=== PATIENT | male | born 1965 | race Caucasian/White ===

== ENCOUNTER 2022-01-08 11:53 | Inpatient (IN) ==
[2022-01-08] MEDS ORDERED: Melatonin 3 MG TABLET PO PRN (20:43)
[2022-01-08] MEDS ORDERED: Naloxone 0.4 MG/ML INJ IVP PRN (20:43)
[2022-01-08] MEDS ORDERED: Ondansetron 4 MG/2 ML VIAL IVP PRN (21:00)
[2022-01-08] MEDS ORDERED: Acetaminophen 325 MG TABLET PO PRN (21:00)
[2022-01-08] MEDS ORDERED: Albuterol 2.5 MG/3 ML NEBULIZER IH PRN (21:20)
[2022-01-08] MEDS ORDERED: Vancomycin 2,000 MG/520 ML IV.SOLN IVPB ONE (22:00)
[2022-01-08 22:09] LABS: Basophils # 0.1 K/mcL (0.0-0.2); Basophils % 0.5 %; Hematocrit 35.4 % (37.5-50.1); Hemoglobin 12.1 g/dL (12.9-16.9); Immature Granulocytes % 1.6 % (0-4); Lymphocytes # 1.6 K/mcL (0.6-4.6); Lymphocytes % 7.3 %; Mean Corpuscular HGB Conc 34.2 g/dL (31.6-35.5); Mean Corpuscular Hemoglobin 27.4 pg (28.0-33.3); Mean Corpuscular Volume 80.1 fL (83.0-100.0); Mean Platelet Volume 10.3 fL (9.4-12.4); Monocytes # 1.7 K/mcL (0.0-1.3); Monocytes % 7.8 %; Platelet Count 350 K/mcL (140-400); Red Blood Count 4.42 M/mcL (4.19-5.50); Red Cell Distribution Width 14.4 % (11.5-14.5); Segmented Neutrophils % 82.8 %; White Blood Count 21.8 K/mcL (4.3-11.1)
[2022-01-08 22:15] LABS: Neutrophils # 18.1 K/mcL (1.6-8.9)
[2022-01-08 22:46] LABS: Target Cells 1+ (Not Present); Toxic Granulation Present (Not Present)
[2022-01-09] MEDS: Meropenem 1,000 MG in Water for inj. (sterile) 20 ML IVP SCH ×3 (00:35→16:33)
[2022-01-09 01:02] LABS: Basophils # 0.1 K/mcL (0.0-0.2); Basophils % 0.3 %; Hematocrit 33.1 % (37.5-50.1); Hemoglobin 11.6 g/dL (12.9-16.9); Immature Granulocytes % 1.4 % (0-4); Lymphocytes # 1.9 K/mcL (0.6-4.6); Lymphocytes % 8.5 %; Mean Corpuscular Hemoglobin 28.4 pg (28.0-33.3); Mean Corpuscular Volume 80.9 fL (83.0-100.0); Mean Platelet Volume 10.3 fL (9.4-12.4); Monocytes # 1.9 K/mcL (0.0-1.3); Monocytes % 8.5 %; Neutrophils # 18.1 K/mcL (1.6-8.9); Platelet Count 311 K/mcL (140-400); Red Blood Count 4.09 M/mcL (4.19-5.50); Red Cell Distribution Width 14.6 % (11.5-14.5); Segmented Neutrophils % 81.3 %; White Blood Count 22.3 K/mcL (4.3-11.1)
[2022-01-09 01:14] LABS: BUN/Creatinine Ratio 25 (6-26); Blood Urea Nitrogen 22 mg/dL (6-20); Calcium 7.4 mg/dL (8.6-10.3); Carbon Dioxide 20 mEq/L (23-29); Chloride 100 mEq/L (98-107); Glucose 160 mg/dL (70-105); Osmolality,Calculated 277 (280-300); Potassium 3.5 mEq/L (3.5-5.1); Sodium 130 mEq/L (136-145); eGFR For African Americans > 60 (> 60); eGFR For Non-African Americans > 60 (> 60)
[2022-01-09 01:16] LABS: Alanine Aminotransferase 82 Units/L (7-52); Albumin 1.6 g/dL (3.5-5.7); Albumin/Globulin Ratio 0.3 (1.1-2.2); Alkaline Phosphatase 152 Units/L (34-104); Aspartate Amino Transferase 118 Units/L (13-39); BUN/Creatinine Ratio 25 (6-26); Bilirubin,Total 1.5 mg/dL (0.3-1.0); Blood Urea Nitrogen 22 mg/dL (6-20); Calcium 7.4 mg/dL (8.6-10.3); Carbon Dioxide 20 mEq/L (23-29); Chloride 100 mEq/L (98-107); Globulin 5.5 g/dL (2.4-3.5); Glucose 161 mg/dL (70-105); Magnesium 1.9 mg/dL (1.6-2.6); Osmolality,Calculated 277 (280-300); Phosphorous 4.7 mg/dL (2.7-4.5); Potassium 3.5 mEq/L (3.5-5.1); Sodium 130 mEq/L (136-145); Total Protein 7.1 g/dL (6.4-8.9); Troponin I 0.03 ng/mL (< 0.04); eGFR For African Americans > 60 (> 60); eGFR For Non-African Americans > 60 (> 60)
[2022-01-09 01:31] LABS: INR 1.8; Prothrombin Time 20.4 Seconds (9.4-12.1)
[2022-01-09 02:07] LABS: Hypochromasia Present (Not Present); Platelet Estimate Normal (Normal); Toxic Granulation Present (Not Present)
[2022-01-09] MEDS: *HR* Heparin 5,000 UNIT/ML VIAL SQ SCH ×2 (06:01→17:13)
[2022-01-09] MEDS: Vancomycin 1,750 MG/517.5 ML IV.SOLN IVPB SCH ×2 (12:00→21:26)
[2022-01-09] MEDS ORDERED: *HR* Phytonadione 5 MG TABLET PO ONE (15:08)
[2022-01-09] MEDS: Piperacillin/Tazobactam 3.375 GM in 0.9 % Sodium Chloride Mini Bag 100 ML IVPB SCH (23:43)
[2022-01-10] MEDS: *HR* Heparin 5,000 UNIT/ML VIAL SQ SCH ×2 (06:30→16:42)
[2022-01-10 09:08] LABS: Hematocrit 35.3 % (37.5-50.1); Hemoglobin 12.1 g/dL (12.9-16.9); Mean Corpuscular HGB Conc 34.3 g/dL (31.6-35.5); Mean Corpuscular Hemoglobin 27.7 pg (28.0-33.3); Mean Corpuscular Volume 80.8 fL (83.0-100.0); Mean Platelet Volume 9.9 fL (9.4-12.4); Nucleated Red Blood Cells 0.1 /100 WBC (0); Platelet Count 265 K/mcL (140-400); Red Blood Count 4.37 M/mcL (4.19-5.50); Red Cell Distribution Width 15.1 % (11.5-14.5)
[2022-01-10] MEDS: Piperacillin/Tazobactam 3.375 GM in 0.9 % Sodium Chloride Mini Bag 100 ML IVPB SCH ×2 (09:12→16:43)
[2022-01-10 09:25] LABS: BUN/Creatinine Ratio 26 (6-26); Blood Urea Nitrogen 18 mg/dL (6-20); Calcium 7.5 mg/dL (8.6-10.3); Carbon Dioxide 24 mEq/L (23-29); Chloride 100 mEq/L (98-107); Glucose 105 mg/dL (70-105); Osmolality,Calculated 274 (280-300); Potassium 3.4 mEq/L (3.5-5.1); Sodium 131 mEq/L (136-145); eGFR For African Americans > 60 (> 60); eGFR For Non-African Americans > 60 (> 60)
[2022-01-10 09:26] LABS: INR 1.5; Prothrombin Time 16.2 Seconds (9.4-12.1)
[2022-01-10 09:30] LABS: eGFR For African Americans > 60 (> 60); eGFR For Non-African Americans > 60 (> 60)
[2022-01-10 10:37] LABS: Hypochromasia Present (Not Present); Lymphocytes # 1.2 K/mcL (0.6-4.6); Monocytes # 0.4 K/mcL (0.0-1.3); Neutrophils # 18.4 K/mcL (1.6-8.9); Platelet Estimate Normal (Normal); Target Cells 1+ (Not Present); Toxic Granulation Present (Not Present); Toxic Vacuolation Present (Not Present)
[2022-01-10] MEDS: Vancomycin 1,750 MG/517.5 ML IV.SOLN IVPB SCH ×2 (11:31→22:19)
[2022-01-10] MEDS ORDERED: *HR* Midazolam HCl 2 MG/2 ML VIAL ONE (13:12)
[2022-01-10] MEDS ORDERED: *HR* Propofol 200 MG/20 ML VIAL IVP ONE (13:12)
[2022-01-10] MEDS ORDERED: *HR* FentaNYL (PF) 100 MCG/2 ML VIAL ONE (13:12)
[2022-01-10] MEDS ORDERED: Lidocaine -MPF 4% 5 ML AMPUL ONE (13:14)
[2022-01-10] MEDS ORDERED: Ondansetron 4 MG/2 ML VIAL ONE (13:14)
[2022-01-10] MEDS ORDERED: Lidocaine -MPF 2% 2 ML VIAL ONE (13:14)
[2022-01-10] MEDS: Ringers Solution, Lactated 1,000 ML IVC SCH (13:19)
[2022-01-10 14:29] LABS: Source of Body Fluid RLL BAL
[2022-01-10 14:29] LABS: Source of Body Fluid LLL BAL
[2022-01-10] MEDS ORDERED: Ipratropium/Albuterol Neb 3 ML IH ONE (15:16)
[2022-01-10] MEDS ORDERED: Ipratropium/Albuterol Neb 3 ML IH PRN (15:16)
[2022-01-10] MEDS ORDERED: Ipratropium/Albuterol Neb 3 ML ONE (15:21)
[2022-01-10 15:28] LABS: Appearance of Body Fluid Cloudy (Clear); Volume of Body Fluid 14 mL
[2022-01-10] MEDS ORDERED: Lidocaine -MPF 1% 5 ML AMPUL ONE (15:45)
[2022-01-10 16:19] LABS: Appearance of Body Fluid Cloudy (Clear); Volume of Body Fluid 23 mL
[2022-01-10] MEDS ORDERED: *HR* OxyCODONE/APAP 7.5/325 TABLET PO PRN (17:34)
[2022-01-10] MEDS ORDERED: Furosemide 20 MG/2 ML VIAL IVP ONE (20:05)
[2022-01-10] MEDS ORDERED: *HR* Labetalol 20 MG/4 ML SYRINGE IVP ONE (20:05)
[2022-01-10] MEDS: Ipratropium/Albuterol Neb 3 ML IH SCH ×2 (20:36→23:34)
[2022-01-11] MEDS: Piperacillin/Tazobactam 3.375 GM in 0.9 % Sodium Chloride Mini Bag 100 ML IVPB SCH ×3 (00:04→18:00)
[2022-01-11 02:26] LABS: Basophils # 0.1 K/mcL (0.0-0.2); Basophils % 0.2 %; Hematocrit 36.6 % (37.5-50.1); Hemoglobin 12.2 g/dL (12.9-16.9); Immature Granulocytes % 1.1 % (0-4); Lymphocytes # 1.9 K/mcL (0.6-4.6); Lymphocytes % 8.7 %; Mean Corpuscular HGB Conc 33.3 g/dL (31.6-35.5); Mean Corpuscular Hemoglobin 27.1 pg (28.0-33.3); Mean Corpuscular Volume 81.3 fL (83.0-100.0); Mean Platelet Volume 10.3 fL (9.4-12.4); Monocytes # 1.5 K/mcL (0.0-1.3); Neutrophils # 18.3 K/mcL (1.6-8.9); Platelet Count 240 K/mcL (140-400); Red Cell Distribution Width 15.4 % (11.5-14.5)
[2022-01-11] MEDS ORDERED: *HR* Labetalol 20 MG/4 ML SYRINGE IVP ONE (02:38)
[2022-01-11 03:21] LABS: BUN/Creatinine Ratio 24 (6-26); Blood Urea Nitrogen 17 mg/dL (6-20); Calcium 7.2 mg/dL (8.6-10.3); Carbon Dioxide 24 mEq/L (23-29); Chloride 102 mEq/L (98-107); Glucose 134 mg/dL (70-105); Osmolality,Calculated 280 (280-300); Potassium 3.4 mEq/L (3.5-5.1); Sodium 133 mEq/L (136-145); eGFR For African Americans > 60 (> 60); eGFR For Non-African Americans > 60 (> 60)
[2022-01-11] MEDS: Ipratropium/Albuterol Neb 3 ML IH SCH ×2 (04:12→07:46)
[2022-01-11] MEDS: *HR* Heparin 5,000 UNIT/ML VIAL SQ SCH ×2 (06:04→17:27)
[2022-01-11] MEDS ORDERED: Furosemide 20 MG/2 ML VIAL IVP ONE (06:30)
[2022-01-11] MEDS ORDERED: *HR* Propofol 200 MG/20 ML VIAL IVP ONE ×2 (06:44→22:15)
[2022-01-11] MEDS ORDERED: Ondansetron 4 MG/2 ML VIAL ONE (06:47)
[2022-01-11] MEDS ORDERED: Lidocaine -MPF 2% 2 ML VIAL ONE (06:47)
[2022-01-11] MEDS ORDERED: Lidocaine HCL 4 ML Topical Solution (Laryng-O-Jet Kit Sterile Pak) TP ONE (06:47)
[2022-01-11] MEDS ORDERED: *HR* Rocuronium Bromide 50 MG/5 ML VIAL ONE ×2 (06:47→09:16)
[2022-01-11] MEDS ORDERED: *HR* FentaNYL (PF) 100 MCG/2 ML VIAL ONE (06:49)
[2022-01-11] MEDS ORDERED: *HR* Phenylephrine 10 MG/ML VIAL ONE (07:01)
[2022-01-11] MEDS ORDERED: *HR* Midazolam HCl 2 MG/2 ML VIAL ONE (07:04)
[2022-01-11] MEDS ORDERED: Ondansetron 4 MG/2 ML VIAL IVP PRN (07:28)
[2022-01-11] MEDS ORDERED: *HR* HYDROmorphone PF 0.5 MG/0.5 ML SYRINGE IVP PRN (07:28)
[2022-01-11] MEDS ORDERED: *HR* HYDROMORPHONE 2 MG/ML VIAL ONE (09:54)
[2022-01-11] MEDS ORDERED: *HR* Midazolam HCl 2 MG/2 ML VIAL IVP ONE (10:31)
[2022-01-11] MEDS ORDERED: Artificial Tears SOLN 15 ML BOTTLE BOTH EYES PRN (10:32)
[2022-01-11] MEDS: Vancomycin 1,750 MG/517.5 ML IV.SOLN IVPB SCH (10:44)
[2022-01-11] MEDS ORDERED: Chlorhexidine Rinse 15 ML MOUTHWASH MM SCH (10:45)
[2022-01-11] MEDS ORDERED: 0.9 % Sodium Chloride 1,000 ML IVC SCH ×2 (10:48→16:15)
[2022-01-11 11:42] LABS: ABG Base Excess -3 mEq/L (-2 to 3); ABG HCO3 21 mEq/L (21-27); ABG Oxygen Saturation 99 % (95-98); ABG PCO2 34 mmHg (35-45); ABG PO2 122 mmHg (85-104); ABG TCO2 22 mEq/L (20-26); Blood Gas Modality ASSIST CONTROL; Blood Gas VT 500 cc
[2022-01-11] MEDS ORDERED: Artificial Tears SOLN 15 ML BOTTLE BOTH EYES SCH (12:00)
[2022-01-11 12:12] LABS: VBG Ionized Calcium 1.02 mmol/L (1.15-1.35)
[2022-01-11 12:17] LABS: Hematocrit 39.3 % (37.5-50.1); Hemoglobin 12.9 g/dL (12.9-16.9); Mean Corpuscular HGB Conc 32.8 g/dL (31.6-35.5); Mean Corpuscular Hemoglobin 28.2 pg (28.0-33.3); Mean Platelet Volume 10.7 fL (9.4-12.4); Platelet Count 275 K/mcL (140-400); Red Blood Count 4.57 M/mcL (4.19-5.50); Red Cell Distribution Width 16.2 % (11.5-14.5)
[2022-01-11 12:19] LABS: White Blood Count 32.1 K/mcL (4.3-11.1)
[2022-01-11 12:29] LABS: BUN/Creatinine Ratio 19 (6-26); Blood Urea Nitrogen 20 mg/dL (6-20); Calcium 7.7 mg/dL (8.6-10.3); Carbon Dioxide 23 mEq/L (23-29); Chloride 101 mEq/L (98-107); Glucose 146 mg/dL (70-105); Magnesium 2.2 mg/dL (1.6-2.6); Osmolality,Calculated 281 (280-300); Phosphorous 6.8 mg/dL (2.7-4.5); Potassium 4.1 mEq/L (3.5-5.1); Sodium 133 mEq/L (136-145); eGFR For African Americans > 60 (> 60); eGFR For Non-African Americans > 60 (> 60)
[2022-01-11] MEDS ORDERED: Calcium Gluconate 1gm/50mL 1 GM/50 ML BAG IVPB ONE (12:37)
[2022-01-11 13:15] LABS: Adenovirus Not Detected (Not Detect); Bordetella Pertussis Not Detected (Not Detect); Chlamydophila pneumoniae Not Detected (Not Detect); Coronavirus 229E Not Detected (Not Detect); Coronavirus HKU1 Not Detected (Not Detect); Coronavirus NL63 Not Detected (Not Detect); Coronavirus OC43 Not Detected (Not Detect); Human Metapneumovirus Not Detected (Not Detect); Human Rhinovirus/Enterovirus Not Detected (Not Detect); Influenza A Subtype 2009 H1 Not Detected (Not Detect); Influenza B Not Detected (Not Detect); Mycoplasma pneumoniae Not Detected (Not Detect); Parainfluenza Virus 1 Not Detected (Not Detect); Parainfluenza Virus 2 Not Detected (Not Detect); Parainfluenza Virus 3 Not Detected (Not Detect); Parainfluenza Virus 4 Not Detected (Not Detect); Respiratory Syncytial Virus Not Detected (Not Detect); SARS-CoV-2 Not Detected (Not Detect)
[2022-01-11] MEDS ORDERED: *HR* LORazepam 2 MG/ML VIAL IVP ONE (14:02)
[2022-01-11] MEDS: Albumin Human 5% 12.5 GM/250 ML IV.SOLN IVC SCH ×4 (14:07→17:31)
[2022-01-11] MEDS: FentaNYL (PF) 1,000 MCG/100 ML IV.SOLN IVC SCH ×2 (14:49→22:00)
[2022-01-11] MEDS: Dexmedetomidine HCl 400 MCG/100 ML MLS IVC SCH ×2 (14:51→19:47)
[2022-01-11] MEDS: 0.9 % Sodium Chloride 1,000 ML IVC SCH ×2 (14:51→22:51)
[2022-01-11] MEDS: *HR* HYDROmorphone PCA *PREMADE* 20 MG/1MG/ML (20mL) PCA VIAL IVC SCH (14:52)
[2022-01-11] MEDS ORDERED: *HR* Midazolam HCl 5 MG/5 ML VIAL IVP ONE ×2 (15:26)
[2022-01-11 18:06] LABS: Hematocrit 30.6 % (37.5-50.1)
[2022-01-11 18:16] LABS: Hemoglobin 9.7 g/dL (12.9-16.9)
[2022-01-11 18:24] LABS: BUN/Creatinine Ratio 20 (6-26); Blood Urea Nitrogen 28 mg/dL (6-20); Calcium 7.4 mg/dL (8.6-10.3); Carbon Dioxide 25 mEq/L (23-29); Chloride 104 mEq/L (98-107); Glucose 151 mg/dL (70-105); Osmolality,Calculated 294 (280-300); Potassium 4.2 mEq/L (3.5-5.1); Sodium 138 mEq/L (136-145); eGFR For African Americans > 60 (> 60); eGFR For Non-African Americans 52 (> 60)
[2022-01-11] MEDS: Chlorhexidine Rinse 15 ML MOUTHWASH MM SCH (19:48)
[2022-01-11] MEDS ORDERED: Furosemide 40 MG/4 ML VIAL ONE (21:47)
[2022-01-11] MEDS: Furosemide 40 MG/4 ML VIAL IVP ONE ×2 (21:50→22:48)
[2022-01-11 21:56] LABS: ABG Base Excess -2 mEq/L (-2 to 3); ABG HCO3 24 mEq/L (21-27); ABG Oxygen Saturation 91 % (95-98); ABG PCO2 44 mmHg (35-45); ABG PH 7.34 pH Units (7.32-7.45); ABG PO2 66 mmHg (85-104); ABG TCO2 25 mEq/L (20-26); Blood Gas Modality 15LPM
[2022-01-11] MEDS: Ipratropium/Albuterol Neb 3 ML IH PRN (22:02)
[2022-01-11] MEDS ORDERED: *HR* Etomidate 20 MG/10 ML AMPUL IVP ONE (22:15)
[2022-01-11] MEDS ORDERED: Vancomycin 1,750 MG/517.5 ML IV.SOLN IVPB SCH (23:00)
[2022-01-12] MEDS: Piperacillin/Tazobactam 3.375 GM in 0.9 % Sodium Chloride Mini Bag 100 ML IVPB SCH ×3 (02:09→18:14)
[2022-01-12] MEDS: Norepinephrine 4 MG/254 ML IV.SOLN IVC SCH ×3 (02:24→15:43)
[2022-01-12 03:51] LABS: Basophils # 0.1 K/mcL (0.0-0.2); Basophils % 0.3 %; Hematocrit 34.5 % (37.5-50.1); Hemoglobin 11.3 g/dL (12.9-16.9); Immature Granulocytes % 2.2 % (0-4); Lymphocytes # 1.9 K/mcL (0.6-4.6); Lymphocytes % 6.8 %; Mean Corpuscular HGB Conc 32.8 g/dL (31.6-35.5); Mean Corpuscular Hemoglobin 28.1 pg (28.0-33.3); Mean Corpuscular Volume 85.8 fL (83.0-100.0); Mean Platelet Volume 10.5 fL (9.4-12.4); Monocytes # 1.5 K/mcL (0.0-1.3); Monocytes % 5.2 %; Neutrophils # 24.2 K/mcL (1.6-8.9); Platelet Count 189 K/mcL (140-400); Red Blood Count 4.02 M/mcL (4.19-5.50); Red Cell Distribution Width 16.1 % (11.5-14.5); Segmented Neutrophils % 85.5 %; White Blood Count 28.3 K/mcL (4.3-11.1)
[2022-01-12 04:00] LABS: VBG Ionized Calcium 1.03 mmol/L (1.15-1.35)
[2022-01-12 04:05] LABS: Calcium 7.6 mg/dL (8.6-10.3); Potassium 3.7 mEq/L (3.5-5.1)
[2022-01-12] MEDS ORDERED: Calcium Gluconate 1gm/50mL 1 GM/50 ML BAG IVPB ONE (04:25)
[2022-01-12 04:57] LABS: ABG Base Excess -3 mEq/L (-2 to 3); ABG HCO3 22 mEq/L (21-27); ABG Oxygen Saturation 93 % (95-98); ABG PCO2 37 mmHg (35-45); ABG PH 7.38 pH Units (7.32-7.45); ABG PO2 69 mmHg (85-104); ABG TCO2 23 mEq/L (20-26); Blood Gas Modality AF; Blood Gas VT 500 cc
[2022-01-12] MEDS: *HR* Heparin 5,000 UNIT/ML VIAL SQ SCH ×2 (05:04→18:13)
[2022-01-12] MEDS: FentaNYL (PF) 1,000 MCG/100 ML IV.SOLN IVC SCH ×4 (05:12→21:20)
[2022-01-12] MEDS: Ringers Solution, Lactated 1,000 ML IVC SCH (07:31)
[2022-01-12] MEDS: *HR* HYDROmorphone PCA *PREMADE* 20 MG/1MG/ML (20mL) PCA VIAL IVC SCH (08:28)
[2022-01-12] MEDS: 0.9 % Sodium Chloride 1,000 ML IVC SCH ×2 (08:33→16:03)
[2022-01-12] MEDS: Chlorhexidine Rinse 15 ML MOUTHWASH MM SCH ×2 (08:34→20:30)
[2022-01-12] MEDS: Pantoprazole 40 MG VIAL IVP SCH (08:34)
[2022-01-12] MEDS ORDERED: Lidocaine -MPF 1% 5 ML AMPUL INFILT ONE (08:49)
[2022-01-12] MEDS: Albumin Human 5% 12.5 GM/250 ML IV.SOLN IVC SCH ×2 (10:12→11:40)
[2022-01-12 12:53] LABS: Hematocrit 33.1 % (37.5-50.1); Hemoglobin 10.8 g/dL (12.9-16.9)
[2022-01-12 13:04] LABS: Magnesium 2.1 mg/dL (1.6-2.6); Phosphorous 7.2 mg/dL (2.7-4.5)
[2022-01-12] MEDS ORDERED: Furosemide 40 MG/4 ML VIAL IVP ONE (18:15)
[2022-01-12] MEDS: Ipratropium/Albuterol Neb 3 ML IH PRN (18:20)
[2022-01-12 18:22] LABS: Influenza A PCR Body Fluid NOT DETECTED; Influenza B PCR Body Fluid NOT DETECTED; RVP Body Fluid Source BAL
[2022-01-12 18:23] LABS: Influenza A PCR Body Fluid NOT DETECTED; Influenza B PCR Body Fluid NOT DETECTED; RVP Body Fluid Source BAL
[2022-01-13] MEDS: FentaNYL (PF) 1,000 MCG/100 ML IV.SOLN IVC SCH ×5 (02:20→22:33)
[2022-01-13] MEDS: Piperacillin/Tazobactam 3.375 GM in 0.9 % Sodium Chloride Mini Bag 100 ML IVPB SCH ×3 (02:21→18:09)
[2022-01-13 03:49] LABS: Hemoglobin 11.2 g/dL (12.9-16.9)
[2022-01-13 03:51] LABS: Hematocrit 35.2 % (37.5-50.1); Mean Corpuscular HGB Conc 31.8 g/dL (31.6-35.5); Mean Corpuscular Hemoglobin 27.9 pg (28.0-33.3); Mean Corpuscular Volume 87.6 fL (83.0-100.0); Mean Platelet Volume 11.1 fL (9.4-12.4); Nucleated Red Blood Cells 0.1 /100 WBC (0); Platelet Count 160 K/mcL (140-400); Red Blood Count 4.02 M/mcL (4.19-5.50); Red Cell Distribution Width 16.6 % (11.5-14.5)
[2022-01-13 04:02] LABS: VBG Ionized Calcium 1.09 mmol/L (1.15-1.35)
[2022-01-13 04:04] LABS: Magnesium 2.3 mg/dL (1.6-2.6); Phosphorous 8.5 mg/dL (2.7-4.5); Potassium 4.2 mEq/L (3.5-5.1)
[2022-01-13 04:05] LABS: ABG Base Excess -9 mEq/L (-2 to 3); ABG HCO3 19 mEq/L (21-27); ABG Oxygen Saturation 92 % (95-98); ABG PCO2 47 mmHg (35-45); ABG PH 7.21 pH Units (7.32-7.45); ABG PO2 77 mmHg (85-104); ABG TCO2 20 mEq/L (20-26); Blood Gas Modality ASSIST CONTROL; Blood Gas VT 500 cc
[2022-01-13 04:08] LABS: White Blood Count 46.7 K/mcL (4.3-11.1)
[2022-01-13] MEDS ORDERED: Calcium Gluconate 1gm/50mL 1 GM/50 ML BAG IVPB ONE (04:58)
[2022-01-13 05:04] LABS: Lymphocytes # 1.9 K/mcL (0.6-4.6); Monocytes # 1.9 K/mcL (0.0-1.3)
[2022-01-13 05:05] LABS: Poikilocytosis 1+ (Not Present)
[2022-01-13] MEDS: *HR* Heparin 5,000 UNIT/ML VIAL SQ SCH ×2 (06:10→16:48)
[2022-01-13] MEDS: 0.9 % Sodium Chloride 1,000 ML IVC SCH ×4 (07:06→23:09)
[2022-01-13] MEDS: Norepinephrine 4 MG/254 ML IV.SOLN IVC SCH ×2 (07:07→11:52)
[2022-01-13] MEDS: Dexmedetomidine HCl 400 MCG/100 ML MLS IVC SCH ×2 (07:07→21:20)
[2022-01-13] MEDS: Chlorhexidine Rinse 15 ML MOUTHWASH MM SCH ×2 (08:11→21:08)
[2022-01-13] MEDS: Pantoprazole 40 MG VIAL IVP SCH (08:11)
[2022-01-13] MEDS: *HR* HYDROmorphone PCA *PREMADE* 20 MG/1MG/ML (20mL) PCA VIAL IVC SCH (08:12)
[2022-01-13] MEDS ORDERED: Sodium Bicarbonate 100 MEQ in D5% in Water 1,000 ML IVC SCH (08:30)
[2022-01-13] MEDS: Calcium Acetate 667 MG CAPSULE GTUBE SCH ×2 (09:21→13:08)
[2022-01-13] MEDS ORDERED: Vancomycin 1,750 MG/517.5 ML IV.SOLN IVPB SCH (10:00)
[2022-01-13 10:02] LABS: VBG Ionized Calcium 1.08 mmol/L (1.15-1.35)
[2022-01-13] MEDS ORDERED: Calcium Chloride 1,000 MG in 0.9 % Sodium Chloride 100 ML IVPB ONE (12:13)
[2022-01-13 12:23] LABS: RSV PCR Body Fluid NOT DETECTED
[2022-01-13 12:23] LABS: RSV PCR Body Fluid NOT DETECTED
[2022-01-13 17:19] LABS: VBG Ionized Calcium 1.09 mmol/L (1.15-1.35)
[2022-01-13 17:26] LABS: A.galactomannan Ag Index 0.09
[2022-01-13 17:40] LABS: Calcium 7.7 mg/dL (8.6-10.3); Magnesium 2.4 mg/dL (1.6-2.6); Phosphorous 8.3 mg/dL (2.7-4.5); Potassium 4.5 mEq/L (3.5-5.1)
[2022-01-13] MEDS: Calcium Gluconate 1gm/50mL 1 GM/50 ML BAG IVPB SCH ×2 (18:25→19:38)
[2022-01-13] MEDS: Calcium Acetate 667 MG CAPSULE PO SCH (18:25)
[2022-01-13] MEDS: Sodium Bicarbonate 150 MEQ in D5% in Water 1,000 ML IVC SCH (18:50)
[2022-01-14] MEDS: Norepinephrine 4 MG/254 ML IV.SOLN IVC SCH ×3 (02:04→18:04)
[2022-01-14] MEDS: Sodium Bicarbonate 150 MEQ in D5% in Water 1,000 ML IVC SCH ×3 (03:37→22:36)
[2022-01-14] MEDS: Piperacillin/Tazobactam 3.375 GM in 0.9 % Sodium Chloride Mini Bag 100 ML IVPB SCH ×3 (03:56→19:43)
[2022-01-14 04:17] LABS: VBG Ionized Calcium 1.12 mmol/L (1.15-1.35)
[2022-01-14 04:27] LABS: ABG Base Excess -3 mEq/L (-2 to 3); ABG HCO3 23 mEq/L (21-27); ABG Oxygen Saturation 97 % (95-98); ABG PCO2 45 mmHg (35-45); ABG PH 7.32 pH Units (7.32-7.45); ABG PO2 95 mmHg (85-104); ABG TCO2 25 mEq/L (20-26); Blood Gas VT 500 cc
[2022-01-14] MEDS: FentaNYL (PF) 1,000 MCG/100 ML IV.SOLN IVC SCH ×4 (04:30→21:09)
[2022-01-14 04:33] LABS: Basophils % 0.2 %; Lymphocytes % 6.1 %
[2022-01-14 04:37] LABS: Basophils # 0.1 K/mcL (0.0-0.2); Eosinophils # 0.1 K/mcL (0.0-0.6); Eosinophils % 0.2 %; Hematocrit 30.1 % (37.5-50.1); Hemoglobin 9.8 g/dL (12.9-16.9); Immature Granulocytes % 2.3 % (0-4); Lymphocytes # 1.8 K/mcL (0.6-4.6); Mean Corpuscular HGB Conc 32.6 g/dL (31.6-35.5); Mean Corpuscular Hemoglobin 28.5 pg (28.0-33.3); Mean Corpuscular Volume 87.5 fL (83.0-100.0); Mean Platelet Volume 11.7 fL (9.4-12.4); Monocytes # 1.2 K/mcL (0.0-1.3); Neutrophils # 26.1 K/mcL (1.6-8.9); Nucleated Red Blood Cells 0.1 /100 WBC (0); Platelet Count 100 K/mcL (140-400); Red Blood Count 3.44 M/mcL (4.19-5.50); Red Cell Distribution Width 16.5 % (11.5-14.5); Segmented Neutrophils % 87.2 %; White Blood Count 29.9 K/mcL (4.3-11.1)
[2022-01-14 04:51] LABS: Albumin 1.7 g/dL (3.5-5.7); Albumin/Globulin Ratio 0.5 (1.1-2.2); Bilirubin,Total 1.4 mg/dL (0.3-1.0); Calcium 7.9 mg/dL (8.6-10.3); Globulin 3.5 g/dL (2.4-3.5); Magnesium 2.3 mg/dL (1.6-2.6); Phosphorous 8.3 mg/dL (2.7-4.5); Potassium 3.8 mEq/L (3.5-5.1); Total Protein 5.2 g/dL (6.4-8.9)
[2022-01-14] MEDS: *HR* Heparin 5,000 UNIT/ML VIAL SQ SCH (05:37)
[2022-01-14] MEDS: 0.9 % Sodium Chloride 1,000 ML IVC SCH ×3 (05:59→22:37)
[2022-01-14] MEDS: Calcium Acetate 667 MG CAPSULE GTUBE SCH (07:26)
[2022-01-14] MEDS: Calcium Acetate 667 MG CAPSULE PO SCH ×3 (07:31→16:56)
[2022-01-14] MEDS: Chlorhexidine Rinse 15 ML MOUTHWASH MM SCH ×2 (07:31→19:44)
[2022-01-14] MEDS: Pantoprazole 40 MG VIAL IVP SCH (07:31)
[2022-01-14] MEDS ORDERED: Perflutren Lipid Microsphere 1.3 ML in 0.9 % Sodium Chloride 8.7 ML IVP PRN (07:53)
[2022-01-14] MEDS: Artificial Tears SOLN 15 ML BOTTLE BOTH EYES PRN ×2 (07:57→11:47)
[2022-01-14] MEDS: *HR* HYDROmorphone PCA *PREMADE* 20 MG/1MG/ML (20mL) PCA VIAL IVC SCH (11:45)
[2022-01-14] MEDS: Artificial Tears SOLN 15 ML BOTTLE BOTH EYES SCH ×3 (16:01→23:26)
[2022-01-14] MEDS ORDERED: D5% in Water 1,000 ML IVC PRN (16:53)
[2022-01-14] MEDS ORDERED: Dextrose 4 GM Chewable Tablets PO PRN ×2 (16:53)
[2022-01-14] MEDS: Dexmedetomidine HCl 400 MCG/100 ML MLS IVC SCH (16:57)
[2022-01-14 17:26] LABS: VBG HCO3 32 mEq/L (21-27); VBG Ionized Calcium 0.82 mmol/L (1.15-1.35); VBG PCO2 57 mmHg (41-51); VBG PH 7.36 pH Units (7.32-7.42); VBG PO2 72 mmHg (25-50)
[2022-01-14] MEDS: Insulin LISPRO 300 UNITS/3 ML VIAL SUBQ SCH ×2 (17:32→23:47)
[2022-01-14] MEDS: Calcium Gluconate 1gm/50mL 1 GM/50 ML BAG IVPB PRN (17:39)
[2022-01-14 18:25] LABS: Magnesium 1.9 mg/dL (1.6-2.6); Phosphorous 6.3 mg/dL (2.7-4.5); Potassium 3.7 mEq/L (3.5-5.1)
[2022-01-14 18:48] LABS: Nucleated Red Blood Cells 0.1 /100 WBC (0)
[2022-01-14 18:50] LABS: Hematocrit 27.7 % (37.5-50.1); Hemoglobin 9.5 g/dL (12.9-16.9); Immature Platelets 12.8 % (1.1-6.1); Mean Corpuscular HGB Conc 34.3 g/dL (31.6-35.5); Mean Corpuscular Volume 84.5 fL (83.0-100.0); Mean Platelet Volume 12.4 fL (9.4-12.4); Platelet Count 104 K/mcL (140-400); Red Blood Count 3.28 M/mcL (4.19-5.50); Red Cell Distribution Width 16.6 % (11.5-14.5)
[2022-01-14 18:59] LABS: White Blood Count 34.1 K/mcL (4.3-11.1)
[2022-01-14 19:55] LABS: Lymphocytes # 2.4 K/mcL (0.6-4.6); Neutrophils # 31.7 K/mcL (1.6-8.9)
[2022-01-14] MEDS: Ipratropium/Albuterol Neb 3 ML IH PRN (19:55)
[2022-01-14 19:56] LABS: Platelet Estimate Slight Decrease (Normal)
[2022-01-15] MEDS: Norepinephrine 4 MG/254 ML IV.SOLN IVC SCH ×6 (00:01→12:55)
[2022-01-15] MEDS: FentaNYL (PF) 1,000 MCG/100 ML IV.SOLN IVC SCH ×4 (02:10→19:27)
[2022-01-15] MEDS: Piperacillin/Tazobactam 3.375 GM in 0.9 % Sodium Chloride Mini Bag 100 ML IVPB SCH ×3 (02:18→18:01)
[2022-01-15] MEDS: Artificial Tears SOLN 15 ML BOTTLE BOTH EYES SCH ×6 (02:19→22:38)
[2022-01-15] MEDS ORDERED: Albumin 25% 25gram/100mL 25 GM/100 ML IV.SOLN IVPB ONE (03:04)
[2022-01-15 03:52] LABS: Hemoglobin 9.2 g/dL (12.9-16.9)
[2022-01-15 03:54] LABS: Hematocrit 27.4 % (37.5-50.1); Mean Corpuscular HGB Conc 33.6 g/dL (31.6-35.5); Mean Corpuscular Hemoglobin 30.2 pg (28.0-33.3); Mean Corpuscular Volume 89.8 fL (83.0-100.0); Nucleated Red Blood Cells 0.5 /100 WBC (0); Red Blood Count 3.05 M/mcL (4.19-5.50); Red Cell Distribution Width 17.2 % (11.5-14.5)
[2022-01-15 03:59] LABS: VBG Ionized Calcium 0.69 mmol/L (1.15-1.35)
[2022-01-15] MEDS: Ipratropium/Albuterol Neb 3 ML IH PRN (04:00)
[2022-01-15 04:04] LABS: Platelet Count 99 K/mcL (140-400)
[2022-01-15 04:23] LABS: ABG Base Excess -6 mEq/L (-2 to 3); ABG HCO3 22 mEq/L (21-27); ABG Oxygen Saturation 93 % (95-98); ABG PCO2 55 mmHg (35-45); ABG PH 7.22 pH Units (7.32-7.45); ABG PO2 83 mmHg (85-104); ABG TCO2 24 mEq/L (20-26); Blood Gas Modality ASSIST CONTROL; Blood Gas VT 500 cc
[2022-01-15] MEDS: Calcium Gluconate 1gm/50mL 1 GM/50 ML BAG IVPB PRN (04:42)
[2022-01-15 05:12] LABS: Calcium 4.6 mg/dL (8.6-10.3); Magnesium 1.4 mg/dL (1.6-2.6); Phosphorous 6.4 mg/dL (2.7-4.5); Potassium 3.3 mEq/L (3.5-5.1)
[2022-01-15 05:15] LABS: Lymphocytes # 1.5 K/mcL (0.6-4.6); Neutrophils # 35.5 K/mcL (1.6-8.9); Platelet Estimate Decreased (Normal)
[2022-01-15] MEDS: Insulin LISPRO 300 UNITS/3 ML VIAL SUBQ SCH ×4 (05:27→23:22)
[2022-01-15] MEDS: 0.9 % Sodium Chloride 1,000 ML IVC SCH (06:50)
[2022-01-15] MEDS: Sodium Bicarbonate 150 MEQ in D5% in Water 1,000 ML IVC SCH ×2 (07:11→16:20)
[2022-01-15] MEDS: Calcium Acetate 667 MG CAPSULE PO SCH ×3 (08:13→16:20)
[2022-01-15] MEDS: Pantoprazole 40 MG VIAL IVP SCH (08:13)
[2022-01-15] MEDS: Chlorhexidine Rinse 15 ML MOUTHWASH MM SCH ×2 (08:14→20:52)
[2022-01-15] MEDS: Dexmedetomidine HCl 400 MCG/100 ML MLS IVC SCH (11:07)
[2022-01-15 11:42] LABS: VBG HCO3 21 mEq/L (21-27); VBG PCO2 58 mmHg (41-51); VBG PH 7.17 pH Units (7.32-7.42); VBG PO2 89 mmHg (25-50)
[2022-01-15] MEDS ORDERED: Acetaminophen 325 MG TABLET PO PRN (11:42)
[2022-01-15 11:52] LABS: VBG Ionized Calcium 0.88 mmol/L (1.15-1.35)
[2022-01-15 12:03] LABS: ABG Base Excess -6 mEq/L (-2 to 3); ABG HCO3 22 mEq/L (21-27); ABG Oxygen Saturation 94 % (95-98); ABG PCO2 55 mmHg (35-45); ABG PH 7.21 pH Units (7.32-7.45); ABG PO2 85 mmHg (85-104); ABG TCO2 24 mEq/L (20-26); Blood Gas Modality ASSIST CONTROL; Blood Gas VT 500 cc
[2022-01-15] MEDS ORDERED: Vancomycin 500 MG in 0.9 % Sodium Chloride Mini Bag 100 ML IVPB ONE (13:00)
[2022-01-15] MEDS ORDERED: Vancomycin 1,750 MG in 0.9 % Sodium Chloride 250 ML IVPB SCH (13:00)
[2022-01-15] MEDS ORDERED: Calcium Chloride 2,000 MG in 0.9 % Sodium Chloride 100 ML IVPB ONE (13:16)
[2022-01-15] MEDS: Norepinephrine 32 MG/250 ML IV.SOLN IVC SCH (15:34)
[2022-01-15] MEDS: Micafungin 100 MG in 0.9 % Sodium Chloride Mini Bag 100 ML IVPB SCH (15:53)
[2022-01-15] MEDS: Albumin Human 5% 12.5 GM/250 ML IV.SOLN IVC SCH ×2 (16:53→20:44)
[2022-01-16] MEDS: FentaNYL (PF) 1,000 MCG/100 ML IV.SOLN IVC SCH ×3 (00:47→11:40)
[2022-01-16] MEDS: Piperacillin/Tazobactam 3.375 GM in 0.9 % Sodium Chloride Mini Bag 100 ML IVPB SCH ×3 (02:58→18:51)
[2022-01-16] MEDS: Artificial Tears SOLN 15 ML BOTTLE BOTH EYES SCH ×5 (03:00→20:22)
[2022-01-16] MEDS: Norepinephrine 32 MG/250 ML IV.SOLN IVC SCH ×2 (03:16→14:55)
[2022-01-16] MEDS: Ipratropium/Albuterol Neb 3 ML IH PRN (03:54)
[2022-01-16 03:57] LABS: Bilirubin,Urine Negative (Negative); Blood,Urine Trace (Negative); Calcium Phosphate Crystals,Ur Present per hpf; Clarity,Urine Ex.Turbid (Clear); Color,Urine Yellow (Yellow); Glucose,Urine (UA) Normal (Normal); Ketones,Urine Negative (Negative); Leukocyte Esterase,Urine Negative (Negative); Nitrite,Urine Negative (Negative); PH,Urine 5.5 pH Units (5.0-8.0); Protein,Urine 50 mg/dL (Neg-Trace); RBC,Urine 0-3 per hpf (0-3); Specific Gravity,Urine 1.022 (1.010-1.025); Squamous Epithelial Cell,Urine Few per hpf (None-Few); Urobilinogen,Urine Normal (Normal)
[2022-01-16 04:01] LABS: ABG Base Excess -4 mEq/L (-2 to 3); ABG HCO3 23 mEq/L (21-27); ABG Oxygen Saturation 97 % (95-98); ABG PCO2 51 mmHg (35-45); ABG PH 7.27 pH Units (7.32-7.45); ABG PO2 108 mmHg (85-104); ABG TCO2 25 mEq/L (20-26); Blood Gas Modality ASSIST CONTROL; Blood Gas VT 500 cc
[2022-01-16 04:05] LABS: Basophils % 0.3 %; Eosinophils % 0.2 %; Hemoglobin 9.4 g/dL (12.9-16.9)
[2022-01-16 04:07] LABS: Basophils # 0.2 K/mcL (0.0-0.2); Eosinophils # 0.1 K/mcL (0.0-0.6); Hematocrit 29.4 % (37.5-50.1); Immature Granulocytes % 2.2 % (0-4); Lymphocytes # 1.6 K/mcL (0.6-4.6); Lymphocytes % 3.1 %; Mean Corpuscular Hemoglobin 28.5 pg (28.0-33.3); Mean Corpuscular Volume 89.1 fL (83.0-100.0); Mean Platelet Volume 11.7 fL (9.4-12.4); Monocytes # 1.1 K/mcL (0.0-1.3); Neutrophils # 48.2 K/mcL (1.6-8.9); Nucleated Red Blood Cells 0.2 /100 WBC (0); Platelet Count 127 K/mcL (140-400); Red Cell Distribution Width 17.3 % (11.5-14.5); Segmented Neutrophils % 92.2 %
[2022-01-16 04:12] LABS: White Blood Count 52.3 K/mcL (4.3-11.1)
[2022-01-16] MEDS: Insulin LISPRO 300 UNITS/3 ML VIAL SUBQ SCH ×3 (04:45→18:14)
[2022-01-16 05:28] LABS: Albumin 2.1 g/dL (3.5-5.7); Albumin/Globulin Ratio 0.6 (1.1-2.2); Bilirubin,Total 2.5 mg/dL (0.3-1.0); Calcium 7.3 mg/dL (8.6-10.3); Globulin 3.8 g/dL (2.4-3.5); Magnesium 2.6 mg/dL (1.6-2.6); Phosphorous 11.5 mg/dL (2.7-4.5); Potassium 5.3 mEq/L (3.5-5.1); Total Protein 5.9 g/dL (6.4-8.9)
[2022-01-16 07:43] LABS: Calcium 7.3 mg/dL (8.6-10.3); Potassium 5.2 mEq/L (3.5-5.1)
[2022-01-16] MEDS ORDERED: 0.9 % Sodium Chloride 1,000 ML ONE (07:47)
[2022-01-16] MEDS: Dexmedetomidine HCl 400 MCG/100 ML MLS IVC SCH (07:53)
[2022-01-16] MEDS: Chlorhexidine Rinse 15 ML MOUTHWASH MM SCH ×2 (07:53→20:32)
[2022-01-16] MEDS: Calcium Acetate 667 MG CAPSULE PO SCH ×3 (07:53→16:15)
[2022-01-16] MEDS: Pantoprazole 40 MG VIAL IVP SCH (07:53)
[2022-01-16 08:56] LABS: INR 1.7; Prothrombin Time 19.2 Seconds (9.4-12.1)
[2022-01-16] MEDS ORDERED: 0.9 % Sodium Chloride 1,000 ML PRIME ONE ×2 (12:19)
[2022-01-16] MEDS ORDERED: *HR* Heparin 5,000 UNIT/ML VIAL IVP PRN (12:19)
[2022-01-16] MEDS ORDERED: *HR* Alteplase (Cathflo) 2 MG VIAL IVP PRN (12:19)
[2022-01-16] MEDS: Sodium Bicarbonate 150 MEQ in D5% in Water 1,000 ML IVC SCH (12:25)
[2022-01-16] MEDS ORDERED: 0.9 % Sodium Chloride 1,000 ML PRIME SCH (12:30)
[2022-01-16] MEDS: Phenylephrine 100 MG in 0.9 % Sodium Chloride 250 ML IVC SCH (13:15)
[2022-01-16] MEDS: Albumin Human 5% 12.5 GM/250 ML IV.SOLN IVC SCH ×2 (13:53→14:15)
[2022-01-16] MEDS: Micafungin 100 MG in 0.9 % Sodium Chloride Mini Bag 100 ML IVPB SCH (14:50)
[2022-01-16 14:57] LABS: Uric Acid 11.3 mg/dL (2.3-7.6)
[2022-01-16] MEDS: PrismaSATE BGK 4/2.5 5,000 ML CRRT SCH ×5 (16:18→22:40)
[2022-01-16] MEDS ORDERED: Calcium Chloride 1,000 MG in 0.9 % Sodium Chloride 100 ML IVPB ONE (17:00)
[2022-01-16] MEDS: FentaNYL (PF) 2,500 MCG/50 ML IV.SOLN IVC SCH (17:33)
[2022-01-16 20:23] LABS: ABG Base Excess -1 mEq/L (-2 to 3); ABG HCO3 26 mEq/L (21-27); ABG Oxygen Saturation 98 % (95-98); ABG PCO2 56 mmHg (35-45); ABG PH 7.28 pH Units (7.32-7.45); ABG PO2 111 mmHg (85-104); ABG TCO2 28 mEq/L (20-26); Blood Gas Modality AF; Blood Gas VT 500 cc
[2022-01-16] MEDS ORDERED: *HR* Heparin 5,000 UNIT/ML VIAL ONE (21:29)
[2022-01-17] MEDS: Insulin LISPRO 300 UNITS/3 ML VIAL SUBQ SCH ×4 (00:23→17:05)
[2022-01-17] MEDS: Artificial Tears SOLN 15 ML BOTTLE BOTH EYES SCH ×6 (00:23→19:47)
[2022-01-17] MEDS: Norepinephrine 32 MG/250 ML IV.SOLN IVC SCH ×3 (01:40→17:56)
[2022-01-17] MEDS: FentaNYL (PF) 2,500 MCG/50 ML IV.SOLN IVC SCH ×2 (01:48→20:11)
[2022-01-17] MEDS: Piperacillin/Tazobactam 3.375 GM in 0.9 % Sodium Chloride Mini Bag 100 ML IVPB SCH ×3 (03:04→18:46)
[2022-01-17] MEDS: PrismaSATE BGK 4/2.5 5,000 ML CRRT SCH ×10 (03:23→19:00)
[2022-01-17 04:10] LABS: ABG Base Excess -5 mEq/L (-2 to 3); ABG HCO3 22 mEq/L (21-27); ABG Oxygen Saturation 96 % (95-98); ABG PCO2 44 mmHg (35-45); ABG PO2 87 mmHg (85-104); ABG TCO2 23 mEq/L (20-26); Blood Gas Modality AF; Blood Gas VT 500 cc
[2022-01-17 05:47] LABS: VBG Ionized Calcium 0.91 mmol/L (1.15-1.35)
[2022-01-17 05:50] LABS: Hematocrit 31.7 % (37.5-50.1); Hemoglobin 9.8 g/dL (12.9-16.9); Mean Corpuscular HGB Conc 30.9 g/dL (31.6-35.5); Mean Corpuscular Hemoglobin 27.4 pg (28.0-33.3); Mean Corpuscular Volume 88.5 fL (83.0-100.0); Mean Platelet Volume 12.4 fL (9.4-12.4); Platelet Count 104 K/mcL (140-400); Red Blood Count 3.58 M/mcL (4.19-5.50); Red Cell Distribution Width 17.6 % (11.5-14.5)
[2022-01-17] MEDS: Calcium Gluconate 1gm/50mL 1 GM/50 ML BAG IVPB PRN (05:51)
[2022-01-17 05:52] LABS: White Blood Count 45.8 K/mcL (4.3-11.1)
[2022-01-17] MEDS: Calcium Acetate 667 MG CAPSULE PO SCH ×3 (07:43→17:04)
[2022-01-17] MEDS: Chlorhexidine Rinse 15 ML MOUTHWASH MM SCH ×2 (07:43→20:14)
[2022-01-17] MEDS: Pantoprazole 40 MG VIAL IVP SCH (07:43)
[2022-01-17 10:06] LABS: Albumin 2.3 g/dL (3.5-5.7); Albumin/Globulin Ratio 0.5 (1.1-2.2); Bilirubin,Total 3.9 mg/dL (0.3-1.0); Calcium 7.6 mg/dL (8.6-10.3); Globulin 4.5 g/dL (2.4-3.5); Magnesium 2.6 mg/dL (1.6-2.6); Potassium 5.8 mEq/L (3.5-5.1); Total Protein 6.8 g/dL (6.4-8.9)
[2022-01-17] MEDS ORDERED: *HR* Dextrose 50 % in Water (Syg) 50 ML SYRINGE ONE ×2 (11:24→13:02)
[2022-01-17] MEDS: *HR* Dextrose 50 % in Water (Syg) 50 ML SYRINGE IVP PRN ×2 (11:29→13:19)
[2022-01-17] MEDS ORDERED: Calcium Chloride 2,000 MG in 0.9 % Sodium Chloride 100 ML IVPB ONE ×2 (11:30→14:23)
[2022-01-17] MEDS: D10% in Water 500 ML IVC SCH ×2 (13:19→19:26)
[2022-01-17 13:24] LABS: VBG Ionized Calcium 1.07 mmol/L (1.15-1.35)
[2022-01-17 13:35] LABS: Calcium 8.4 mg/dL (8.6-10.3); Potassium 6.1 mEq/L (3.5-5.1)
[2022-01-17] MEDS: Micafungin 100 MG in 0.9 % Sodium Chloride Mini Bag 100 ML IVPB SCH (14:41)
[2022-01-17] MEDS ORDERED: Heparin 25,000UNIT/250ML 1/2NS 25,000 UNIT/250 ML IV.SOLN IVC SCH (14:45)
[2022-01-17 15:39] LABS: Heparin anti-factor XA UFH < 0.04 IU/mL (0.30-0.70); INR 2.2; Prothrombin Time 24.2 Seconds (9.4-12.1)
[2022-01-17 18:15] LABS: VBG Ionized Calcium 1.05 mmol/L (1.15-1.35)
[2022-01-17 18:18] LABS: Calcium 7.9 mg/dL (8.6-10.3); Potassium 6.1 mEq/L (3.5-5.1)
[2022-01-17] MEDS: Sodium Bicarbonate 150 MEQ in D5% in Water 1,000 ML IVC SCH ×3 (18:47→19:27)
[2022-01-17] MEDS: Dexmedetomidine HCl 400 MCG/100 ML MLS IVC SCH (19:27)
[2022-01-17] MEDS: Phenylephrine 100 MG in 0.9 % Sodium Chloride 250 ML IVC SCH (19:46)
[2022-01-17 20:05] VITALS: BP 89/40; TEMP 97
[2022-01-17 20:11] VITALS: PULSE 77
[2022-01-17 20:49] VITALS: O2SAT 100
[2022-01-17] MEDS ORDERED: Haloperidol Oral Conc 10 MG/5 ML UDC PO PRN (21:10)
[2022-01-17] MEDS ORDERED: Atropine Sulfate 1% 40 DROP/2 ML BOTTLE SL PRN (21:10)
[2022-01-17] MEDS ORDERED: FentaNYL (PF) 2,500 MCG/50 ML IV.SOLN IVC SCH (21:13)
== END 2022-01-17 21:28 | disposition expired | DRG 710 ==
LOC: 3NENU → SUATTDRO 19:29 → 2NNU 01-10 19:03 → ICNU 01-11 10:20
PROVIDERS: ADMIT Internal Medicine; ATTEND Family Medicine